=== PATIENT | male | born 1985 | race Caucasian/White ===

== ENCOUNTER 2017-05-16 15:37 | Inpatient (IN) | payer SELFPAY ==
[~2017-05-16] VITALS: Ht 177.8 cm; Wt 106.4 kg
--- NOTE | ~2017-05-16 | PRO ---
PATIENT:SANJAY WILSON MEDICAL RECORD: [id number] : 89 LOCATION:[id number] ADMISSION DATE: 05/16/17 PROCEDURE PERFORMED BY: SANJAY RYAN MD DATE OF PROCEDURE: 05/19/2017 TOOL PROFILING MACHINE SET UP OPERATOR: Sanjay Ryan MD PROCEDURE: Colonoscopy with ileoscopy, polypectomy times 2 via hot biopsy, and random biopsy. INDICATION: The patient is a 31-year-old white male, who was basically admitted with a long history of GI irregularity, and a couple episodes of minimal hematochezia. His hematocrit is 45. He is down for a colonoscopy basically to rule out inflammatory bowel disease. He has had no weight loss. PREMEDICATION: Taper anesthesia. INSTRUMENT: Olympus video adjustable colonoscope. FINDINGS: Rectal exam was normal. The colonoscope was passed through the rectum into the cecum/terminal ileum without much difficulty. Prep was good. Exam was completely normal with the exception of 2 diminutive rectal polyps, which were removed and minimal internal hemorrhoids noted on retroflexion of the rectum. There was no evidence of any bleeding whatsoever. After, I removed his rectal polyps by means of hot biopsy. I took some random biopsies of his rectum to rule out microscopic colitis. The terminal ileum looked normal. The patient tolerated the procedure well without any complications. IMPRESSION: 1. Two diminutive rectal polyps, now status post polypectomy via hot biopsy times 2. 2. Minimal internal hemorrhoids with no signs of any bleeding whatsoever. 3. Otherwise, normal colonoscopy with ileoscopy and no reason seen to account for any bleeding, which I have to presume was hemorrhoidal in nature. RECOMMENDATIONS: 1. Follow up biopsy results times 2. 2. Avoid straining with bowel movement. 3. Okay to discharge home from GI standpoint. 4. We will consider [id number] hemorrhoidal creams to be used p.r.n. 5. Repeat colonoscopy in 5 years. 6. I suspect this patient has irritable bowel syndrome. TRANSINT:[id number] Voice Confirmation ID: [id number] DOCUMENT ID: [id number] PROCEDURE NOTE [id number] SANJAY WILSON JOHN MD CC: DEN DURAN MD [id number] DICTATION DATE: 05/19/17 1115 HIDE GRADER: 05/20/17 0122 DIS IN 05/19/17 [place] [id number] [place] [id number]
--- NOTE | 2017-05-16 15:50 | NUR ---
RECEIVED TO ROOM 2218 AMBULATORY DIRECT ADMIT. IV SITED TO R FA WITH 20 GAUGE X 1 ATTEMPT. LABS ALSO DRAWN. COMPLAINING OF BACK PAIN THAT STARTED FEW DAYS AGO. REPORTS HAVING BLOODY STOOLS AT HOME FOR PAST COUPLE OF DAY. FAMILY AT BEDSIDE.
[2017-05-16] MEDS ORDERED: IBUPROFEN800 MG PO (15:54)
[2017-05-16] MEDS ORDERED: ALEVE220 MG PO (15:55)
[2017-05-16 16:07] VITALS: BP 113/60; Ht 177.8 cm; Wt 106.4 kg
[2017-05-16 16:25] LABS: BASOPHILS 0.4 % (0-2); EOSINOPHILS 2.9 % (0-7); HEMATOCRIT 47.7 % (42.0-54.0); HEMOGLOBIN 16.5 g/dL (13.5-17.5); IMMATURE GRANULOCYTES 0.4 % (0-5); LYMPHOCYTES 28.4 % (15-50); MCH 29.7 pg (26.0-34.0); MCHC 34.6 g/dL (31.0-37.0); MCV 85.9 fL (80.0-100.0); MEAN PLATELET VOLUME 10.9 fL (7.4-10.4); MONOCYTES 11.4 % (2-11); NEUTROPHILS 56.5 % (40-80); PLATELET COUNT 178 10x3/uL (130-400); RBC 5.55 10x6/uL (4.20-6.10); RDW 12.3 % (11.5-14.5)
[2017-05-16 16:51] LABS: ALBUMIN 4.2 g/dL (3.4-5.0); ALKALINE PHOSPHATASE 68 U/L (46-116); ALT (SGPT) 118 U/L (10-68); BILIRUBIN - TOTAL 0.31 mg/dL (0.2-1.3); CALC OSMOLALITY 277 mosm/kg (275-300); CALCIUM 8.9 mg/dL (8.5-10.1); CARBON DIOXIDE 23.8 mmol/L (21.0-32.0); CHLORIDE - SERUM 105 mmol/L (98-107); CREATININE - SERUM 0.8 mg/dL (0.6-1.3); GLUCOSE 83 mg/dL (74-106); POTASSIUM - SERUM 4.2 mmol/L (3.5-5.1); PROTEIN - SERUM 7.3 g/dL (6.4-8.2); SODIUM 140 mmol/L (136-145); UREA NITROGEN 13 mg/dL (7-18); eGFR NON AFRICAN AMERICAN > 90 mL/min (90-120)
[2017-05-16 17:32] LABS: ERYTHROCYTE SEDIMENTATION RATE 11 mm/hr (0-15)
--- NOTE | 2017-05-16 17:45 | NUR ---
URINE SPECIMEN SENT TO LAB.
[2017-05-16 18:45] LABS: APPEARANCE CLEAR (CLEAR); BILIRUBIN NEGATIVE (NEGATIVE); COLOR YELLOW (YELLOW); GLUCOSE NEGATIVE (NEGATIVE); KETONE NEGATIVE (NEGATIVE); LEUKOCYTE ESTERASE NEGATIVE (NEGATIVE); NITRITE NEGATIVE (NEGATIVE); PROTEIN NEGATIVE (NEGATIVE); UROBILINOGEN NORMAL (NORMAL)
[2017-05-16 19:00] VITALS: BP 115/71
--- NOTE | 2017-05-16 20:00 | NUR ---
ASSESSMENT PER FLOWSHEET. IV PATENT RT FOREARM OF D51/2NS AT 125CC'S/HR SITE CLEAR. SCD'S ON. SR UP X2 CALL LIGHT WITHIN REACH. DENIES NEEDS.
--- NOTE | 2017-05-16 21:00 | NUR ---
RESTING QUIETLY FAMILY MEMBERS AT BEDSIDE.
--- NOTE | 2017-05-16 22:04 | NUR ---
C/O BACK PAIN TOO EARLY FOR TRAMADOL. TYLENOL 500MG PO GIVEN FOR BREAKTHROUGH PAIN.
--- NOTE | 2017-05-16 23:36 | NUR ---
C/O BACK PAIN UNRELIEVED WITH TYLENOL. ULTRAM 100MG PO GIVEN FOR BACK PAIN.
[2017-05-17] VITALS: BP 102/48
--- NOTE | 2017-05-17 | NUR ---
GIRLFRIEND HERE AT BEDSIDE. BOTH RESTING QUIETLY DENIES NEEDS.
--- NOTE | 2017-05-17 03:00 | NUR ---
NEW IV BAG OF FLUIDS HUNG.
[2017-05-17 04:00] VITALS: BP 99/52
[2017-05-17 05:18] LABS: BASOPHILS 0.3 % (0-2); EOSINOPHILS 3.4 % (0-7); HEMATOCRIT 46.1 % (42.0-54.0); HEMOGLOBIN 16.5 g/dL (13.5-17.5); IMMATURE GRANULOCYTES 0.3 % (0-5); MCH 30.8 pg (26.0-34.0); MCHC 35.8 g/dL (31.0-37.0); MEAN PLATELET VOLUME 11.3 fL (7.4-10.4); MONOCYTES 12.8 % (2-11); NEUTROPHILS 51.2 % (40-80); PLATELET COUNT 157 10x3/uL (130-400); RBC 5.36 10x6/uL (4.20-6.10); RDW 12.4 % (11.5-14.5); WBC 5.9 10x3/uL (4.8-10.8)
[2017-05-17 05:33] LABS: CALC OSMOLALITY 276 mosm/kg (275-300); CALCIUM 8.7 mg/dL (8.5-10.1); CHLORIDE - SERUM 104 mmol/L (98-107); CREATININE - SERUM 0.9 mg/dL (0.6-1.3); GLUCOSE 100 mg/dL (74-106); POTASSIUM - SERUM 4.1 mmol/L (3.5-5.1); SODIUM 139 mmol/L (136-145); eGFR NON AFRICAN AMERICAN > 90 mL/min (90-120)
[2017-05-17 05:34] LABS: UREA NITROGEN 9 mg/dL (7-18)
--- NOTE | 2017-05-17 06:38 | NUR ---
RESTING QUIETLY MEDS GIVEN PER DEC. NO CHANGES IN ASSESSMENT.
--- NOTE | 2017-05-17 07:58 | NUR ---
PT AOX4 RESP EVEN AND NONLABORED PT DENIES NEEDS AT THIS TIME IV TO RIGHT FOREARM PATENT AND INTACT AT THIS TIME SRX2 BED AT LOWEST SETTING CALL LIGHT WITHIN REACH WILL CONTINUE TO MONITOR
[2017-05-17 08:42] VITALS: BP 107/46
[2017-05-17 11:57] VITALS: BP 113/68
--- NOTE | 2017-05-17 13:23 | HP ---
PATIENT: SANJAY WILSON MEDICAL RECORD: [id number] ACCOUNT: [id number] LOCATION:[id number] : [birth year] ADMISSION DATE: 05/16/17 HISTORY AND PHYSICAL EXAMINATION REASON FOR ADMISSION: Rectal bleeding and abdominal pain. HISTORY OF PRESENT ILLNESS: The patient is a 31-year-old male, who says he noticed some significant bright red rectal bleeding with bowel movements in the last 2 days. He showed me pictures on his cellphone and had significant amount of blood in and outside of the commode. He said it was painless in the rectum. He is having mid to lower suprapubic and left lower quadrant abdominal pain associated with it. No nausea or vomiting or fever. No prior history of this. He states he has been eating a lot of sunflower seeds recently. There is no family history of inflammatory bowel disease. He denies recent weight loss. PAST MEDICAL HISTORY: He has had history of depression and a suicidal ideation with hospitalization at [facility] in 2009. He has had history of panic syndrome and seasonal depression. PAST SURGICAL HISTORY: Umbilical hernia repair times 2. SOCIAL HISTORY: He is recently , has 1 natural child. He occasionally drinks alcohol, not heavily. Occasionally smokes, not regularly. Uses marijuana regularly. He works as a labor delivery rn. FAMILY HISTORY: Father is a type 1 diabetic, poor health. Mother in good health with no issues. Again, no IBD or colon cancer in the family. ALLERGIES: None mentioned. MEDICATIONS: Ibuprofen 800 mg b.i.d. for low back pain recently. REVIEW OF SYSTEMS: GENERAL: No fever, fatigue, or weight change. HEENT: No recent visual change, sinus congestion, sore throat, or hearing difficulty. RESPIRATORY: No severe cough. CARDIAC: No exertional chest pain, claudication, or edema. GASTROINTESTINAL: No nausea or vomiting. He has had firmly formed stools with bright red blood in the last 2 days, cramping in the lower abdominal left quadrant and suprapubic pain. Denies rectal pain. MUSCULOSKELETAL: He has had lumbago for the last week without sciatica, felt a pop in his back when lifting he states. INTEGUMENT: No rash, itching, or petechia, or easy bruisability. PSYCHIATRIC: He did admit anxiety and depression, but clinically is pretty stable currently. NEUROLOGIC: No known history of stroke, TIA, or vascular headaches. PHYSICAL EXAMINATION: GENERAL: The patient is alert and oriented, in no acute distress. His weight is 234 pounds, height 70 inches and BMI 33.6. VITAL SIGNS: Blood pressure 123/70, heart rate 80 and regular, he is afebrile. HEENT: Normocephalic. Eyes are clear. Sclerae nonicteric. Oropharynx is unremarkable. HISTORY AND PHYSICAL [id number] SANJAY WILSON NECK: Supple. CHEST: Clear. HEART: Regular rate. ABDOMEN: Mildly overweight, soft with healed umbilical hernia repair scar noted. He is generally tender 1+ suprapubically in the left lower quadrant without rebound. No masses were felt. Bowel sounds are hyperactive. RECTAL: Reveals brown stool, trace heme positive. Endoscopic exam shows no internal and external hemorrhoids or source of bleeding. LABORATORY DATA: Currently pending. ASSESSMENT: 1. Abdominal pain with gross rectal bleeding, etiology unknown. 2. Possible colitis versus diverticulitis. 3. History of anxiety. 4. History of depression. 5. Remote umbilical hernia repair. PLAN: The patient will be admitted for lab data, CT abdomen and pelvis with contrast, IV antibiotics consisting of Flagyl and Levaquin. GI consult if indicated. TRANSINT:[id number] Voice Confirmation ID: [id number] DOCUMENT ID: [id number] DEN DURAN MD at 1323 CC: [id number] DICTATION DATE: 05/16/17 1616 GREETER: 05/16/172004 ADM IN [facility] [address] [place] [address]
[2017-05-17 15:07] VITALS: BP 109/59
[2017-05-17 20:00] VITALS: BP 108/55
--- NOTE | 2017-05-17 20:00 | NUR ---
ASSESSMENT PER FLOWSHEET. IV PATENT RT FOREARM OF D51/2NS AT 125CC'S/HR SITE CLEAR. RESTING QUIETLY PLAYING ON HIS PHONE. DENIES NEEDS.
--- NOTE | 2017-05-17 21:57 | NUR ---
C/O CHRONIC BACK PAIN. RATES PAIN LEVEL #6. ULTRAM 100MG PO GIVEN FOR PAIN CONTROL.
[2017-05-18] VITALS (7 sets, daily range): BP systolic 108–119; BP diastolic 47–72
--- NOTE | 2017-05-18 | NUR ---
EYES CLOSED RESPIRATIONS WITH EASE AND UNLABORED.
[2017-05-18 05:57] LABS: BASOPHILS 0.4 % (0-2); EOSINOPHILS 3.9 % (0-7); HEMATOCRIT 45.6 % (42.0-54.0); HEMOGLOBIN 15.7 g/dL (13.5-17.5); IMMATURE GRANULOCYTES 0.4 % (0-5); LYMPHOCYTES 35.3 % (15-50); MCH 29.3 pg (26.0-34.0); MCHC 34.4 g/dL (31.0-37.0); MCV 85.2 fL (80.0-100.0); MEAN PLATELET VOLUME 11.1 fL (7.4-10.4); MONOCYTES 16.3 % (2-11); NEUTROPHILS 43.7 % (40-80); PLATELET COUNT 158 10x3/uL (130-400); RBC 5.35 10x6/uL (4.20-6.10); RDW 12.4 % (11.5-14.5); WBC 5.2 10x3/uL (4.8-10.8)
--- NOTE | 2017-05-18 07:40 | NUR ---
ASSESSMENT PER FLOW SHEET.PT WITHOUT DISTRESS.HE SAYS HIS PAIN IS 0/10 OF RIGHT NOW,BUT STATES HE HAS CHRONIC BACK PAIN.CALL LIGHT IN REACH
--- NOTE | 2017-05-18 18:45 | NUR ---
TOLERATING PREP.PT IS UP TO SHOWER.REMAINS WITHOUT CHANGE FROM INITIAL SHIFT ASSESSMENT.CONT PLAN OF CARE
--- NOTE | 2017-05-18 20:47 | NUR ---
PATIENT IS HAVING FREQUENT STOOLS, PATIENT TOLD ME HE IS HAVING BLOOD IN HIS STOOL SO I TOLD HIM TO CALL ME SO I CAN SEE IT. PATIENT CALLED ME IN THERE, PATIENT STATED "I AM LOOSING ALOT OF BLOOD!" LOOKED IN THE TOILET, THE STOOL IS LIQUID AND ORANGE IN APPEARENCE. PUT A [place] HAT IN THE TOILET TO ASSESS THE STOOL BETTER.
--- NOTE | 2017-05-18 20:53 | NUR ---
THERE IS 100ML OF ORANGE LIQUID STOOL IN THE HAT.
--- NOTE | 2017-05-18 23:16 | NUR ---
PATIENT PUSHED CALL LIGHT, ANSWERED CALL LIGHT. PATIENT CONCERNED STATED "I ALREADY FLUSHED IT, BUT I JUST WENT PEE AND IT WAS YELLOW. SHOULDN'T IT BE CLEAR?" I STATED "YELLOW IS A NORMAL COLOR FOR URINE, IF IT IS TOO CLEAR THAT IS A SIGN OF OVER HYDRATION."
[2017-05-19 03:51] VITALS: BP 100/54
--- NOTE | 2017-05-19 05:42 | NUR ---
TAP WATER ENEMA COMPLETED AT THIS TIME.
--- NOTE | 2017-05-19 05:44 | NUR ---
TAP WATER ENEMA COMPLETED. PATIENT IS SITTING ON COMMODE NOW.
--- NOTE | 2017-05-19 05:53 | NUR ---
PATIENT'S OUTPUT FROM THE ENEMA, LIGHT YELLOW DISCOLORATION IN THE TOILET WATER.
[2017-05-19 06:15] LABS: BASOPHILS 0.1 % (0-2); EOSINOPHILS 2.2 % (0-7); HEMATOCRIT 45.9 % (42.0-54.0); HEMOGLOBIN 16.2 g/dL (13.5-17.5); IMMATURE GRANULOCYTES 0.3 % (0-5); MCH 29.5 pg (26.0-34.0); MCHC 35.3 g/dL (31.0-37.0); MCV 83.5 fL (80.0-100.0); MEAN PLATELET VOLUME 10.9 fL (7.4-10.4); MONOCYTES 11.6 % (2-11); NEUTROPHILS 53.8 % (40-80); PLATELET COUNT 166 10x3/uL (130-400); RDW 12.3 % (11.5-14.5)
[2017-05-19 06:19] LABS: CALC OSMOLALITY 281 mosm/kg (275-300); CALCIUM 8.3 mg/dL (8.5-10.1); CARBON DIOXIDE 25.1 mmol/L (21.0-32.0); CHLORIDE - SERUM 106 mmol/L (98-107); CREATININE - SERUM 0.9 mg/dL (0.6-1.3); GLUCOSE 99 mg/dL (74-106); POTASSIUM - SERUM 3.4 mmol/L (3.5-5.1); SODIUM 142 mmol/L (136-145); UREA NITROGEN 9 mg/dL (7-18); WBC 6.9 10x3/uL (4.8-10.8); eGFR NON AFRICAN AMERICAN > 90 mL/min (90-120)
--- NOTE | 2017-05-19 07:35 | NUR ---
ASSESSMENT PER FLOW SHEET.PT WITHOUT DISTRESS.NPO FOR PROCEDURE
[2017-05-19 08:25] VITALS: BP 108/61
--- NOTE | 2017-05-19 10:22 | NUR ---
TO GI LAB VIA BED
--- NOTE | 2017-05-19 11:30 | NUR ---
BACK TO ROOM.PT AWAKE AND UP IN ROOM.HE IS UPSET AND WANTING TO DC HOME.STATES THEY FOUND NOTHING MAJOR WITH TESTING AND IS UPSET.
--- NOTE | 2017-05-19 12:03 | NUR ---
CALL TO OFFICE FOR POSS DC ORDERS.
[2017-05-19] MEDS ORDERED: ANUSOL-HC25 MG RC (12:59)
--- NOTE | 2017-05-19 13:23 | NUR ---
Patient Name: SANJAY WILSON Admission Status: Urgent Accout number: [id number] Admission Date: 05-16-2017 : 1985 Admission Diagnosis:GASTROINTESTINAL HEMORRHAGE, UNSPECIFIED Attending: XOCHITL Current LOS: 3 Anticipated DC Date: 05-19-2017 Planned Disposition: Home Primary Insurance: UNINSURED DISCOUNT PLAN Discharge Planning Comments: CM MET WITH PATIENT AND MOTHER (TO) REGARDING D/C NEEDS AND PLANS. FAMILY WILL DRIVE HIM HOME AT DISCHARGE. PATIENT STATED THERE ARE NO STEPS TO ENTER HOME AND 1 FLIGHT OF STAIRS INSIDE HOME. PATIENT IS INDEPENDENT WITH HIS CARE AND HAS NO DME AT HOME. PATIENTS PCP IS DR. DURAN AND USES [facility] [address]. PATIENT REFUSED HOME HEALTH AND HAD NO OTHER NEEDS FOR D/C. PATIENT LIVES WITH FAMILY. [facility] [place] [phone] TO [phone] (MOM) Oral Communication Instructor: Shannan Tarango Is the patient Alert and Oriented? Yes 0 * How many steps to enter\exit or inside your home? 1FLIGHT 0 * PCP DR. DURAN 0 * Pharmacy [facility] [address] 0 * Preadmission Environment Home with Family 0 * ADLs Independent 0 * Equipment None 0 * List name and contact numbers for known caregivers / representatives who currently or will assist patient after discharge: TO (MOM) [phone] * Community resources currently utilized None 0 * Additional services required to return to the preadmission environment? Yes 0 * Can the patient safely return to the preadmission environment? Yes 0 * Has this patient been hospitalized within the prior 30 days at any hospital? No 0 Grand Total: 0
--- NOTE | 2017-05-19 14:09 | NUR ---
IV DCD WITH CATH INTACT.DISCHARGE INSTRUCTIONS,STATES UNDERSTANDING.CALL FOR WHEELCHAIR.
--- NOTE | 2017-05-19 14:18 | NUR ---
LEFT UNIT VIA WHEELCHAIR FOR TRANSPORT HOME.
== END 2017-05-19 14:19 | disposition home or self-care (01) | DRG 395 ==
LOC: D.MS 15:37
PROVIDERS: Internal Medicine Gastroenterology; ADMIT Family Medicine
PROC: 0DBP8ZX Excision of Rectum, Via Natural or Artificial Opening Endoscopic, Diagnostic (ICD-10-PCS; 2017-05-19)
PROC: 0DBP8ZZ Excision of Rectum, Via Natural or Artificial Opening Endoscopic (ICD-10-PCS; principal; 2017-05-19 10:30)
DX: K64.8 Other hemorrhoids (principal); F12.90 Cannabis use, unspecified, uncomplicated; M54.5 Low back pain; K62.1 Rectal polyp; Z72.0 Tobacco use